=== PATIENT | male | born 1945 | race Caucasian/White ===

== ENCOUNTER 2016-12-06 23:03 | Emergency (ER) | payer OTHER ==
[~2016-12-06] VITALS: Ht 185.4 cm; Wt 89.6 kg
[2016-12-06 23:12] VITALS: BP 162/92; PULSE 73; TEMP 36.7; O2SAT 95; Ht 185.4 cm; Wt 89.6 kg
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
[2016-12-06] MEDS ORDERED: XYLOCAINE 1%/SOD BICARB 20 ML VIAL INFIL ONE (23:30)
== END 2016-12-07 00:33 | disposition home or self-care (01) ==
LOC: C.EDA 23:06
DX: S91.311A Laceration without foreign body, right foot, initial encounter (principal); V43.62XA Car passenger injured in collision with other type car in traffic accident, initial encounter; M19.90 Unspecified osteoarthritis, unspecified site